=== PATIENT | female | born 1975 | race Hispanic/Latino ===

== ENCOUNTER 2020-11-16 09:50 | Emergency (ER) | payer OTHER ==
--- OUTSIDE RECORDS SUMMARY | 2020-11-16 09:52 | XMS REPORT | Continuity of Care Document ---
:1975 Author Organization [facility] t Address [address] [place] [address] [address] [place] [address] Care Team Providers Name Role Phone Telly HIGGINS Attending Clinician Berkley MANCUSO Attending Clinician Unavailable Lab, Fam Pob I Attending Clinician Unavailable Doctor Unassigned, Name Attending Clinician Unavailable Problems This patient has no known problems. Allergies, Adverse Reactions, Alerts This patient has no known allergies or adverse reactions. Medications This patient has no known medications. Procedures This patient has no known procedures. Encounters Start End Encounter Admission Attending Care Care Encounter Source Date/Time Date/Time Type Type Clinicians Facility Department ID 2020-08-07 2020-08-07 TIARA [id number] 00:00:00 00:00:00 [place] [id number] [place] [id number] Professio [phone] nal [address] One 2020-08-07 2020-08-07 Letter RAMA Gooden [id number] 00:00:00 00:00:00 (Out) Eleni LYLE [id number] [id number] 2020-08-07 2020-08-07 Telephone Silvino, [facility] RAMA [id number] 00:00:00 00:00:00 Fam Pob I LYLE [id number] [id number] 2020-08-06 2020-08-06 Laboratory Lab, [facility] [id number] 15:38:42 15:58:42 Only Fam Pob I Health [id number] [place] [id number] [place] [phone] nal [address] 2020-08-06 2020-08-06 Letter Doctor RAMA [id number] 00:00:00 00:00:00 (Out) Unassigned, LYLE [id number] [place] [facility] [id number] Results This patient has no known results.
[2020-11-16] MEDS ORDERED: OFLOXACIN OPH 0.3%-5 ML BTL OTIC ONE (12:15)
[2020-11-16] MEDS ORDERED: CODEINE 30MG/APAP 300MG TAB ONE (13:45)
--- NOTE | 2020-11-16 13:47 | EDPHYS ---
Physician Documentation [facility] Name: Amberly Carey Age: 45 yrs Sex: Female : 1975 Arrival Date: 11/16/2020 Time: 09:54 Bed 5 Private MD: ED Physician Guanaco Rivera HPI: 11/16 12:04 This 45 yrs old Female presents to ER via Ambulatory with complaints of Ear jmm Pain. 12:04 The patient presents with pain. Onset: The symptoms/episode began/occurred gradually, 1 jmm day(s) ago. Modifying factors: The symptoms are alleviated by nothing, the symptoms are aggravated by pulling on ears. Associated signs and symptoms: Pertinent negatives: cough, fever. The patient has experienced similar episodes in the past. This is a 45 year old female with no chronic medical conditions that presents to the ED with left ear pain. Patient states she is prone to OE due to small ear canals. Denies cough, fever, sob. Historical: - Allergies: 10:03 Excedrin Migraine; ll1 10:03 Lortab; ll1 - PMHx: 10:03 None; ll1 - PSHx: 10:03 ; Hysterectomy; ll1 - Immunization history:: Flu vaccine is not up to date. - Social history:: Smoking status: Patient denies any tobacco usage or history of. ROS: 12:04 Constitutional: Negative for fever, chills, and weight loss. jmm 12:04 ENT: Positive for ear pain. 12:04 All other systems are negative. Exam: 12:04 Constitutional: This is a well developed, well nourished patient who is awake, alert, jmm and in no acute distress. Head/Face: atraumatic. Eyes: EOMI, no conjunctival erythema appreciated 12:04 Neck: Trachea midline, Supple Chest/axilla: Normal chest wall appearance and motion. Cardiovascular: Regular rate and rhythm. No edema appreciated Respiratory: Normal respirations, no respiratory distress appreciated Abdomen/GI: Non distended, soft Back: Normal ROM Skin: General appearance color normal MS/ Extremity: Moves all extremities, no obvious deformities appreciated, no edema noted to the lower extremities Neuro: Awake and alert, normal gait Psych: Behavior is normal, Mood is normal, Patient is cooperative and pleasant 12:04 ENT: Ear canal(s): erythema, that is moderate, of the right canal, TM's: Vital Signs: 10:03 BP 123 / 85; Pulse 89; Resp 16; Temp 99.1; Pulse Ox 97% ; Weight 93.44 kg; Height 5 ft. ll1 1 in. (154.94 cm); Pain 10/10; 10:03 Body Mass Index 38.92 (93.44 kg, 154.94 cm) ll1 MDM: 12:10 Patient medically screened. [facility] 13:44 Data reviewed: vital signs, nurses notes. Counseling: I had a detailed discussion with elisa the patient and/or guardian regarding: the historical points, exam findings, and any diagnostic results supporting the discharge/admit diagnosis, the need for outpatient follow up, to return to the emergency department if symptoms worsen or persist or if there are any questions or concerns that arise at home. ED course: Earwick used to open canal. Patient prescribed otic abx. Patient is advised to follow up with pcp or ent and otherwise given strict return precautions. patient understood and agrees with the plan of care. . Administered Medications: 13:24 Not Given (not available): CIPRODEX (ciprofloxacin-dexamethasone) 4 drops Otic in left sv ear once 13:30 Drug: Tylenol #3 (300 mg-30 mg) 1 tablet Route: PO; ss 14:19 Follow up: Response: No adverse reaction; Medication administered at discharge. ss Disposition: 17:54 Co-signature as Attending Physician, Guanaco Rivera MD available for consultation at ps1 all times. Signature for administrative purposes. Did not see or evaluate the patient unless otherwise noted. . Disposition: 11/16/20 13:46 Discharged to Home. Impression: Acute actinic otitis externa. - Condition is Stable. - Discharge Instructions: Otitis Externa. - Prescriptions for Tylenol- Codeine #3 300-30 mg Oral Tablet - take 1 tablet by ORAL route every 4-6 hours As needed; 12 tablet. Ciprodex 0.3- 0.1 % Otic Drops, Suspension - instill 4 drop by OTIC route every 12 hours for 7 days , for ears ONLY; 1 Container. - Medication Reconciliation Form, Thank You Letter, Antibiotic Education, Prescription Opioid Use form. - Follow up: Nia Lam MD; When: 2 - 3 days; Reason: Recheck today's complaints, Continuance of care, Re-evaluation by your physician. Signatures: Lavell Shannon PA PA jmm Smirch, Shelby, RN RN ss Guanaco Rivera MD MD ps1 Kandice Valadez RN RN ll1 Nia Santiago RN sv Corrections: (The following items were deleted from the chart) 14:20 13:46 11/16/2020 13:46 Discharged to Home. Impression: Acute actinic otitis externa. ss Condition is Stable. Forms are Medication Reconciliation Form, Thank You Letter, Antibiotic Education, Prescription Opioid Use. Follow up: Nia Lam; When: 2 - 3 days; Reason: Recheck today's complaints, Continuance of care, Re-evaluation by your physician. elisa
--- NOTE | 2020-11-16 13:47 | ER ---
Nurse's Notes [facility] Name: Amberly Carey Age: 45 yrs Sex: Female : 1975 Arrival Date: 11/16/2020 Time: 09:54 Bed 5 Private MD: Diagnosis: Acute actinic otitis externa Presentation: 11/16 10:03 Chief complaint: Patient states: L ear pain for 2 days. No fever. Coronavirus screen: ll1 Client denies travel out of the [place] in the last 14 days. At this time, the client does not indicate any symptoms associated with coronavirus-19. Ebola Screen: Patient denies travel to an Ebola-affected area in the 21 days before illness onset. Initial Sepsis Screen: Does the patient meet any 2 criteria? No. Patient's initial sepsis screen is negative. Does the patient have a suspected source of infection? Yes: Other: ear pain. Risk Assessment: Do you want to hurt yourself or someone else? Patient reports no desire to harm self or others. Onset of symptoms was November 14, 2020. 10:03 Method Of Arrival: Ambulatory ll1 10:03 Acuity: SAVANAH 4 ll1 Historical: - Allergies: 10:03 Excedrin Migraine; ll1 10:03 Lortab; ll1 - PMHx: 10:03 None; ll1 - PSHx: 10:03 ; Hysterectomy; ll1 - Immunization history:: Flu vaccine is not up to date. - Social history:: Smoking status: Patient denies any tobacco usage or history of. Screenin:46 Abuse screen: Denies threats or abuse. Denies injuries from another. Nutritional hb screening: No deficits noted. Tuberculosis screening: No symptoms or risk factors identified. Fall Risk None identified. Assessment: 11:47 General: Appears in no apparent distress. Behavior is calm, cooperative. Pain: Pain hb currently is 10 out of 10 on a pain scale. Neuro: Level of Consciousness is awake, alert, obeys commands, Oriented to person, place, time, situation. Cardiovascular: Patient's skin is warm and dry. Respiratory: Respiratory effort is even, unlabored, Respiratory pattern is regular, symmetrical. GI: No signs and/or symptoms were reported involving the gastrointestinal system. : No signs and/or symptoms were reported regarding the genitourinary system. EENT: Reports left ear pain 10/10. Derm: Skin is pink, warm \T\ dry. Musculoskeletal: No signs and/or symptoms reported regarding the musculoskeletal system. 12:30 Reassessment: Patient appears in no apparent distress at this time. Patient and/or hb family updated on plan of care and expected duration. Pain level reassessed. Patient is alert, oriented x 3, equal unlabored respirations, skin warm/dry/pink. 13:30 Reassessment: Patient appears in no apparent distress at this time. Patient and/or hb family updated on plan of care and expected duration. Pain level reassessed. Patient is alert, oriented x 3, equal unlabored respirations, skin warm/dry/pink. Vital Signs: 10:03 BP 123 / 85; Pulse 89; Resp 16; Temp 99.1; Pulse Ox 97% ; Weight 93.44 kg; Height 5 ft. ll1 1 in. (154.94 cm); Pain 10/10; 10:03 Body Mass Index 38.92 (93.44 kg, 154.94 cm) ll1 ED Course: 09:54 Patient arrived in ED. ds1 10:04 Triage completed. ll1 10:04 Arm band placed on. ll1 11:45 Lavell Shannon PA is PHCP. [facility] 11:45 Guanaco Rivera MD is Attending Physician. m 11:47 Patient has correct armband on for positive identification. Bed in low position. Call light in reach. 11:52 Kamini Doyle, BARTOLOME is Primary Nurse. ss 13:45 Nia Lam MD is Referral Physician. [facility] 14:19 No provider procedures requiring assistance completed. Patient did not have IV access ss during this emergency room visit. Administered Medications: 13:24 Not Given (not available): CIPRODEX (ciprofloxacin-dexamethasone) 4 drops Otic in left sv ear once 13:30 Drug: Tylenol #3 (300 mg-30 mg) 1 tablet Route: PO; ss 14:19 Follow up: Response: No adverse reaction; Medication administered at discharge. ss Outcome: 13:46 Discharge ordered by . jmm 14:19 Discharged to home ambulatory. ss 14:19 Condition: good 14:19 Discharge instructions given to patient, Instructed on discharge instructions, follow up and referral plans. medication usage, Demonstrated understanding of instructions, follow-up care, medications, Prescriptions given X 2. 14:20 Patient left the ED. ss Signatures: Lavell Shannon PA PA jmm Sanford, Demi ds1 Kamini Doyle RN RN ss Joanna Maradiaga RN RN Kandice Valadez RN RN ll1 Nia Santiago RN sv
[2020-11-16 14:25] VITALS: BP 123/85; TEMP 99.1; O2SAT 97
== END 2020-11-16 14:20 | disposition home or self-care (01) ==
LOC: ER 09:50
DX: H60.512 Acute actinic otitis externa, left ear (principal)
CPT/HCPCS: 99283